=== PATIENT | female | born 1960 | race Caucasian/White ===

== ENCOUNTER 2018-05-23 09:16 | Emergency (ER) | payer OTHER ==
[2018-05-23] MEDS: LIDOCAINE/MYLANTA 40 ML BTL PO (10:31)
[2018-05-23] MEDS: ONDANSETRON 4 MG INJ IV (10:31)
[2018-05-23] MEDS: HYDROmorphONE 1 MG/ML SYG IV (10:31)
[2018-05-23] MEDS: SOD CHLORIDE 0.9% 1,000 ML IV (10:31)
[2018-05-23] MEDS: FAMOTIDINE 20 MG INJ IV (10:31)
[2018-05-23 10:32] LABS: ADD MAN DIFF? NO
[2018-05-23 10:33] LABS: WHITE BLOOD COUNT 12.6 10^3/ul (4.8-10.8)
[2018-05-23 10:33] LABS: BASOPHILS % 0.2 % (0.0-2.0); HEMATOCRIT 41.2 % (37.0-47.0); HEMOGLOBIN 13.8 g/dl (12.0-16.0); LYMPHOCYTES # 0.9 10^3/ul (0.8-2.9); LYMPHOCYTES % 7.3 % (15.0-51.0); MEAN CORPUSCULAR HEMOGLOBIN 31.3 pg (29.0-33.0); MEAN CORPUSCULAR HGB CONC 33.5 g/dl (32.0-37.0); MEAN CORPUSCULAR VOLUME 93.4 fl (82.0-101.0); MEAN PLATELET VOLUME 9.4 fl (7.4-10.4); MONOCYTE # 0.9 10^3/ul (0.3-0.9); MONOCYTES % 6.9 % (0.0-11.0); NEUTROPHIL # 10.8 10^3/ul (1.6-7.5); NEUTROPHILS % 85.3 % (39.0-77.0); PLATELET COUNT 221 10^3/UL (140-415); RED BLOOD COUNT 4.41 10^6/ul (4.20-5.40); RED CELL DISTRIBUTION WIDTH 13.6 % (11.5-14.5)
[2018-05-23 10:56] LABS: ALANINE AMINOTRANSFERASE 37 IU/L (13-69); ALBUMIN 3.7 g/dl (3.3-4.9); ALBUMIN/GLOBULIN RATIO 1.19; ALKALINE PHOSPHATASE 113 IU/L (42-121); ANION GAP 12 (8-16); ASPARTATE AMINO TRANSFERASE 31 IU/L (15-46); BILIRUBIN,INDIRECT 0.2 mg/dl (0-1.1); BILIRUBIN,TOTAL 0.2 mg/dl (0.2-1.3); BLOOD UREA NITROGEN 10 mg/dl (7-20); CARBON DIOXIDE 26 mmol/L (21-31); CHLORIDE 109 mmol/L (97-110); CREATININE 0.53 mg/dl (0.44-1.00); GLUCOSE 123 mg/dl (70-220); LIPASE 67 U/L (23-300); POTASSIUM 3.7 mmol/L (3.5-5.1); SODIUM 143 mmol/L (135-144); TOTAL PROTEIN 6.8 g/dl (6.1-8.1)
[2018-05-23 11:07] LABS: TROPONIN-I < 0.012 ng/ml (0.000-0.120)
== END 2018-05-23 13:35 | disposition home or self-care (01) ==
LOC: E/R 09:16
DX: R10.13 Epigastric pain (principal)
CPT/HCPCS: 36415; 76705; 80053; 83690; 84484; 85025; 96361; 96374; 96375; 99285-25